=== PATIENT | male | born 1980 | race African-American/Black ===

== ENCOUNTER 2016-10-08 07:50 | Day surgery (SDC) | payer OTHER ==
[~2016-10-08] VITALS: Ht 170.2 cm; Wt 77.5 kg
[2016-10-08 08:31] VITALS: BP 111/84; PULSE 57; TEMP 98.1
[2016-10-08] MEDS ORDERED: PRILOSEC 20MG20 MG PO (08:43)
[2016-10-08 10:15] VITALS: BP 118/80; PULSE 80; TEMP 99.2
[2016-10-08 10:30] VITALS: BP 115/80; PULSE 70
[2016-10-08 10:45] VITALS: BP 107/74; PULSE 73
[2016-10-08 11:00] VITALS: BP 119/70; PULSE 70
== END 2016-10-08 11:31 | disposition home or self-care (01) ==
LOC: SDCO 07:50
DX: K26.9 Duodenal ulcer, unspecified as acute or chronic, without hemorrhage or perforation (principal); B96.81 Helicobacter pylori [H. pylori] as the cause of diseases classified elsewhere; R12 Heartburn; R13.10 Dysphagia, unspecified
CPT/HCPCS: OP; J2250; J3010; J7030

== ENCOUNTER → 2018-08-19 | Outpatient (CLI) | payer OTHER ==
[~2018-08-19] MED LIST: PRILOSEC 20MG20 MG PO
== END ==
LOC: MHCPAIN 13:14
DX: G89.29 Other chronic pain (principal); M47.817 Spondylosis without myelopathy or radiculopathy, lumbosacral region; M53.3 Sacrococcygeal disorders, not elsewhere classified
CPT/HCPCS: G0463

== ENCOUNTER → 2018-08-21 | Outpatient (CLI) | payer OTHER | LOC: MHCPAIN 10:04 | DX: M47.817 Spondylosis without myelopathy or radiculopathy, lumbosacral region (principal); M54.16 Radiculopathy, lumbar region | CPT/HCPCS: J1040; Q9967 ==

== ENCOUNTER → 2018-10-06 | Outpatient (CLI) | payer OTHER | LOC: MHCPAIN 10:26 | DX: Z76.89 Persons encountering health services in other specified circumstances (principal) ==

== ENCOUNTER → 2018-10-09 | Outpatient (CLI) | payer OTHER | LOC: MHCPAIN 08:09 | DX: M53.3 Sacrococcygeal disorders, not elsewhere classified (principal); M47.817 Spondylosis without myelopathy or radiculopathy, lumbosacral region; G89.29 Other chronic pain | CPT/HCPCS: G0260; G0463; J1040; J2250; J3010; Q9967 ==

== ENCOUNTER → 2018-10-27 | Outpatient (CLI) | payer OTHER | LOC: MHCPAIN 09:09 | DX: G89.29 Other chronic pain (principal); M47.817 Spondylosis without myelopathy or radiculopathy, lumbosacral region; M53.3 Sacrococcygeal disorders, not elsewhere classified | CPT/HCPCS: G0463 ==